=== PATIENT | female | born 2000 | race Caucasian/White ===

== ENCOUNTER 2022-04-21 10:25 | Inpatient (IN) | payer MEDICAID, SELFPAY ==
[2022-04-21] VITALS (11 sets, daily range): BP systolic 93–133; BP diastolic 38–85; PULSE 78–126; RESP 16–99; TEMP 36.6–36.9; O2SAT 96–100
--- NOTE | 2022-04-21 10:24 | ED.GENADUL_ITS ---
Discharge Plan Disposition Patient Disposition: [facility] INPATIENT Condition: Stable Discharge Details Chief Complaint: GenMedical Clinical Impression: Normal vaginal delivery ED Provider: Kiel Allred Medical Decision Making 21 yo female who denies chronic medical problems comes in with ems after she deliver a female baby at home. She did not know she was and her periods are always abnormal. She went to the bathroom and started to have abdominal pain and then delivered a baby in the toilet at home. She arrives stable other than mild sinus tachycardia. She has no complaints, denies abdominal pain and also delivered the placenta. OBGYN Dr. Aquino arrived shortly after and is assuming her obgyn care, pitocin ordered for some post delivery uterine bleeding. Differential Diagnosis Differential Diagnosis: vaginal delivery HPI General Mode of arrival: EMS . Date/Time Provider Initiated Documentation: 04/21/22 10:36 . Limitations to Documentation: no limitations . Information obtained by: patient . History of Present Illness 21 year old F presents to the emergency department with the chief complaint of delivered baby at home, Patient started experiencing this hour(s) (1) and it has been now resolved. Patient notes no other symptoms.. Related Data Allergies Allergy/AdvReac Type Severity Reaction Status Date / Time shellfish derived AdvReac Unverified 04/21/22 10:40 Review of Systems All systems reviewed & are unremarkable except as noted in HPI and below Constitutional Constitutional: Denies chills, Denies fever(s) and Denies weakness Cardiovascular Cardiovascular: Denies chest pain and Denies dyspnea Respiratory Respiratory: Denies cough and Denies dyspnea Gastrointestinal Gastrointestinal: Denies vomiting Genitourinary Genitourinary: Denies dysuria Musculoskeletal Musculoskeletal: Denies joint swelling Integumentary/Breasts Skin/Breast: Denies rash Neurologic Neurologic: Denies weakness [facility] All Active Problems (Updated 04/21/22 @ 10:41 by Kiel Allred MD) Normal vaginal delivery (Acute) Social History Smoking/Tobacco Use Status: Never Smoking risk assessment performed?: Yes Alcohol Intake: never Drug use: Never Substance use type: does not use Do you feel safe at home: Yes Do you feel safe in your relationship?: Yes Exam Const General: no acute distress Orientation: alert HENMT Head: normal to inspection Ears: external ears normal General nose exam: external nose normal Mouth: moist mucous membranes Eyes General: appearance normal, both eyes and all related structures Neck Neck: normal visual inspection Resp Effort & Inspection: normal respiratory effort and able to speak in complete sentences Cardio Rate: tachycardic Skin General skin exam: no rashes or lesions noted Neuro General: patient alert and patient oriented x3 Extrem General: normal to inspection Psych Mental Status: mental status grossly normal
--- NOTE | 2022-04-21 11:40 | HPE_ITS ---
Date of service: 04/21/22 Time of Service: 10:40 Assessment and Plan Assessment and plan (1) Encounter for care after unplanned out of hospital delivery: Status: Acute Assessment and plan: We will obtain labs. Assessed with breast-feeding. Offer social support services. We will discuss contraception with the patient during her course (2) Normal vaginal delivery: Status: Acute Assessment and plan: uncomplicated. will observe pp. OB-HPI Labor/Delivery History of Present Illness Reason for Visit: Out Of Hospital Chief Complaint: Other (out of hospital delivery). History of Present Narrative: Patient is a 21-year-old G1 now P1 female with an unknown known LMP who was transported to the [facility] emergency department after a spontaneous vaginal delivery at home this morning approximate 9:00. Patient reports that she did not know she was began having contractions proximal after midnight and went on to deliver a viable female infant over a right labial superficial laceration. Ambulance crew was called and assisted with delivery of an intact placenta and the patient was transported to [facility]. She received 10 units of IM oxytocin in route to the hospital. Upon arrival in the emergency department her daughter was breast-feeding with an excellent latch. Patient's uterus was firm 1 fingerbreadth below the umbilicus with light bleeding noted from a superficial right labial laceration. Review of Systems All systems reviewed & are unremarkable except as noted in HPI and below Constitutional Comments: Patient reports that she has a history of irregular menses. She was not actively contraceptive at the time of but did not realize she was until she went to labor. Genitourinary Genitourinary: Reports abnormal menses (Longstanding history of skipping periods sometimes 3 to 4 months w/o menses) and Reports amenorrhea Musculoskeletal Musculoskeletal: Reports system reviewed and no additional complaints, except as documented Integumentary/Breasts Skin/Breast: Reports system reviewed and no additional complaints, except as documented Psychiatric Comments: Patient relocated to [place] with her boyfriend the father the baby several months ago. Her family lives in [facility]. Patient denies any illicit drug use, tobacco use. She reports that her relationship with her boyfriend is good. Currently residing with her boyfriend grandparents. [facility] All Active Problems (Updated 04/21/22 @ 12:02 by Patria Nash MD) Encounter for care after unplanned out of hospital delivery (Acute) Normal vaginal delivery (Acute) 04/21/2022. Approximately 37 weeks. Out of hospital attended by father of baby. No complications. Patient was unaware that she was Surgical History (Updated 04/21/22 @ 11:57 by Patria Nash MD) History of tonsillectomy and adenoidectomy Social History (Updated 04/21/22 @ 11:59 by Patria Nash MD) Smoking/Tobacco Use Status: Never Smoking risk assessment performed?: Yes Alcohol Intake: never Drug use: Never Substance use type: does not use Household members: significant other and other Details: Moved from [place] with her boyfriend Daniel. Housing: other Details: Lives with just his grandparents Number of Children: 1 Sexually active: Yes Do you feel safe at home: Yes Do you feel safe in your relationship?: Yes Female Reproductive History Menstrual control method: none History History 1 Para 1 Hx # Term Pregnancies Multiple births Hx # Pregnancies Ectopic pregnancies AB induced Hx Number of Living Children 1 AB spontaneous Past Pregnancies Del. Date GA/Weeks # Outcome Route Wgt Sex Labor Lgth Anesthes ia Location Prov Complic Unknown 37 No Successful vaginal Female 8hrs Deli skip out of hospital at home Delivery Date: Last Updated by: Patria Nash MD at home. Patient was unaware she was . Viable female infant who will be named Meds Allergies and Home Medications Allergies Allergy/AdvReac Type Severity Reaction Status Date / Time shellfish derived AdvReac Unverified 04/21/22 10:40 Home Medications Medication Instructions Recorded Confirmed Type loratadine 10 mg tablet (Claritin) 10 mg PO DAILY 04/21/22 04/21/22 History Exam Physical Exam Vital signs: Temp Pulse Resp BP Pulse Ox 98.1 F 126 H 16 118/78 97 04/21/22 10:30 04/21/22 10:30 04/21/22 10:30 04/21/22 10:30 04/21/22 10:30 Vital Signs Reviewed: Yes Constitutional Constitutional: no acute distress Detailed Labor and Delivery Exam Moctezuma Score: Cervical Points Exam 0 1 2 3 Dilation Closed 1-2cm 3-4 cm 5-6cm Effacement 0-30% 40-50% 60-70% 80% Consistency Firm Medium Soft Station -3 -2 -1,0 +1,+2 Position Posterior Mid Anterior Neck Exam Neck Exam: Normal Chest/Brest/Axilla Exam Chest Exam: Normal Breast Exam Breast Exam: Normal Respiratory Exam Respiratory Exam: Normal Cardiovascular Exam Cardiovascular Exam: Normal Abdominal Exam Abdominal Exam: Normal (Fundus firm at 1 fingerbreadth below umbilicus) Rectal Exam Rectal Exam: Normal (Visual inspection normal) Detailed Exam Patient deferred: external exam External: Present normal urethra appearance Genitals image: 1. Superficial labial laceration. The edges were infiltrated with 1% lidocaine and reapproximated with a running suture of 3-0 Vicryl. No other lacerations appreciated. Perineum Description: Normal Extremities Exam Extremities Exam: Normal (Superficial excoriations on both lower extremities and forearms. Patient states that they are mosquito bites) Back/Spine/Pelvis Exam Back Exam: Normal Skin Exam Skin Exam: Normal (As above.) Neurological Exam Neurological Exam: Normal Psychiatric Exam Psychiatric Exam: Normal Results Results Group Beta Strep: N/A Blood Type: O+ Lab Results: serology labs pending Abnormal Lab Findings: I examined pt's ED labs. Troponin elevated. Lab was ordered in error and is artificially elevated secondary to pt's labor and . Will cancel serial labs. Risk Assessment Risks Reviewed Risks Reviewed Upon Admission: Yes
[2022-04-21 12:52] LABS: Absolute Basophil Count 0.02 10^3/uL (0.0-0.2); Absolute Lymphocyte Count 0.89 10^3/uL (1.2-3.4); Absolute Neutrophil Count 15.78 10^3/uL (1.2-6.7); Basophils % 0.1; HCT 29.3 % (36.0-46.0); HGB 9.8 g/dL (11.2-15.7); Immature Grans % 0.6; Lymphocytes % 4.9; MCHC 33.4 % (32.0-36.0); MCV 93 fL (80-95); MPV 11.5 fL (8.0-11.0); Monocytes % 7.2; Neutrophils % 87.2; Platelet Count 137 10^3/uL (130-400); RBC 3.16 10^6/uL (3.93-5.22); RDW 13.2 % (11.7-14.6); RDW-SD 44.8 fL
[2022-04-21] MEDS: Lidocaine 1% Pres-Free 30 ML VIAL (13:19)
[2022-04-21 13:30] LABS: ALT 44 U/L (14-59); AST 47 U/L (15-37); Albumin 2.2 g/dL (3.4-5.0); Alkaline Phosphatase 210 U/L (46-116); Anion Gap 10.5 mmol/L (3-11); BUN 18 mg/dL (7-18); Bilirubin, Total 0.3 mg/dL (0.2-1.0); CO2 22.5 mmol/L (21.0-32.0); Chloride 106 mmol/L (98-107); Glucose 119 mg/dL (74-106); Magnesium 1.6 mg/dL (1.8-2.4); Sodium 139 mmol/L (136-145); Total Protein 5.5 g/dL (6.4-8.2)
[2022-04-21 13:32] LABS: Troponin I 325 ng/L (<or=60)
[2022-04-21] MEDS: Normal Saline Flush 10 ML SYR IVP (14:54)
[2022-04-21 17:21] LABS: *AMPHETAMINES SCREEN URINE Negative (Negative); *BARBITURATES SCREEN URINE Negative (Negative); *BENZODIAZEPINES SCREEN URINE Negative (Negative); Cannabinoids THC Negative (Negative); Cocaine Screen,Urine Negative (Negative); METHADONE URINE SCREEN Negative (Negative); OPIATES URINE SCREEN Negative (Negative)
[2022-04-21 17:22] LABS: Tricyclic Antidepressants Negative (Negative)
[2022-04-21] MEDS: Acetaminophen 325 MG TAB 650 MG PO (20:23)
[2022-04-21 23:43] LABS: Source Nasal/Nares
[2022-04-22 00:33] LABS: COVID-19 PCR Negative (Negative)
[2022-04-22 07:45] VITALS: BP 118/68; PULSE 71; RESP 16; TEMP 36.6; O2SAT 98
[2022-04-22 08:00] LABS: HIV-1/2 Ag & Ab Screen Negative (Negative)
[2022-04-22 08:03] LABS: Hepatitis B Surface Ag Negative (Negative)
[2022-04-22 08:32] LABS: Hepatitis C Ab w Rflx HCV PCR Negative (Negative)
[2022-04-22 12:31] LABS: Rubella IgG Ab (UVM) Positive (See Note)
[2022-04-22 12:36] LABS: Syphilis Serology (RPR) Negative (Negative)
[2022-04-22 16:00] VITALS: BP 138/88; PULSE 83; RESP 16; TEMP 36.8; O2SAT 98
--- NOTE | 2022-04-22 18:33 | W.PM.OBPNV1 ---
Date of service: 04/22/22 Time of Service: 18:33 Assessment and Plan Assessment and plan (1) Encounter for care after unplanned out of hospital delivery: Status: Acute Assessment and plan: Routine post care. D/c likely tomorrow am. Subjective Subjective Patient's Mood: Good baby status: Doing well feeding status: Exclusively breast feeding Narrative: Pt feels well. Minimal bleeding. No n/v. No significant pain. Exam Physical Exam Vital signs: Temp Pulse Resp BP Pulse Ox 97.9 F 71 16 118/68 98 04/22/22 07:45 04/22/22 07:45 04/22/22 07:45 04/22/22 07:45 04/22/22 07:45 Vital Signs Reviewed: Yes HEENT Exam HEENT Exam: Normal Fundal Exam Fundus: Below Umbilicus and Firm Extremities Exam Extremity Exam: Normal; negative Calf Tenderness or Edema Results Hemoglobin/Hematocrit: Hgb 9.8 g/dL (11.2-15.7) L 04/21/22 11:25 Hct 29.3 % (36.0-46.0) L 04/21/22 11:25 Abnormal Lab Findings: Abnormal Labs 04/21/22 04/21/22 11:25 11:25 WBC 18.10 H RBC 3.16 L Hgb 9.8 L Hct 29.3 L MPV 11.5 H Absolute Neutrophils 15.78 H Absolute Lymphocytes 0.89 L Absolute Monocytes 1.30 H Glucose 119 H Magnesium 1.6 L AST 47 H Alkaline Phosphatase 210 H Troponin I 325 H* Total Protein 5.5 L Albumin 2.2 L
[2022-04-22 19:20] VITALS: BP 126/74; PULSE 94; RESP 16; TEMP 36.9; O2SAT 98
[2022-04-23 08:41] VITALS: BP 121/78; PULSE 101; RESP 18; TEMP 36.8
--- NOTE | 2022-04-23 09:10 | W.PM.OBDISCH ---
Date of service: 04/23/22 Time of Service: 09:11 DS: Diagnosis Discharge Diagnosis (1) Encounter for care after unplanned out of hospital delivery: Status: Acute Asessment and Plan: No care. Discharge Plan Disposition Patient Disposition: HOME Condition: Stable Discharge Details Reason For Visit: Out Of Hospital Admit Date/Time: 04/21/22 10:43 Admit Provider: Patria Nash Attending Provider: Patria Nash [facility] Course: Patient was admitted to the center on 04/21/2022 after she had an unattended spontaneous vaginal delivery at home. Patient and her were transported via ambulance to [facility] where she was admitted to the center for 48 hours of observation. She was discharged to home with successfully breast-feeding and bonding well with her infant. We discussed a levonorgestrel IUD for contraception. She will make an appointment for 2 weeks to follow-up with Dr. [facility]. Her female infant will be named Machelle. Home Meds and New Rx's Prescriptions: No Action loratadine [Claritin] 10 mg Tablet 10 mg PO DAILY Discharge Instructions Stand Alone Forms: BC Post Vaginal Deliver, BC Instructions Activity:: No sex until 6 weeks post Equipment/Supplies:: No Equipment Needed Diet:: As Tolerated Discharge Data Discharge Comment: make an appointment to see Dr. Nash in 2weeks OB:DS Summary Summary Vaginal Delivery Method: Spontaneaous Episiotomy Description: None Laceration Description: Perineal Laceration Extension: First Degree complications OB DS: none Contraception Discussed Contraception Discussed: Yes (Patient given information regarding levonorgestrel IUD), Gender-Baby A: Female weight: 6 lb 5.413 oz Disposition of Baby A: Home Gender-Baby B: Female Status at Discharge Functional status at discharge: independent ambulation Overall status at discharge: patient is progressing back to baseline Mental Status: mental status grossly normal Speech and Movement: speech and movement normal Mood: congruent mood Affect: normal affect Time Spent with Patient providing and/or coordinating discharge services: Less than 30 minutes Exam Physical Exam Vital signs: Temp Pulse Resp BP Pulse Ox 98.2 F 101 H 18 121/78 98 04/23/22 08:41 04/23/22 08:41 04/23/22 08:41 04/23/22 08:41 04/22/22 19:20 Constitutional Constitutional: no acute distress Neck Exam Neck Exam: Normal Respiratory Exam Respiratory Exam: Normal Cardiovascular Exam Cardiovascular Exam: Normal Abdominal Exam Comments: non-tender Fundal Exam Fundus: Below Umbilicus Rectal Exam Rectal Exam: Not Done Extremities Exam Extremity Exam: Normal, Normal Capillary Refill and Warm to Touch Back/Spine/Pelvis Exam Back Exam: Not Done Skin Exam Skin Exam: Not Done Neurological Exam Neurological Exam: Normal Psychiatric Exam Psychiatric Exam: Normal Additional findings Additional findings: Patient is adjusting well to role. Breast-feeding successfully. Looking forward to discharge to home with infant. [facility] All Active Problems (Updated 04/21/22 @ 12:02 by Patria Nash MD) Encounter for care after unplanned out of hospital delivery (Acute) Normal vaginal delivery (Acute) 04/21/2022. Approximately 37 weeks. Out of hospital attended by father of baby. No complications. Patient was unaware that she was Surgical History (Updated 04/21/22 @ 11:57 by Patria Nash MD) History of tonsillectomy and adenoidectomy Social History (Updated 04/21/22 @ 11:59 by Patria Nash MD) Smoking/Tobacco Use Status: Never Smoking risk assessment performed?: Yes Alcohol Intake: never Drug use: Never Substance use type: does not use Household members: significant other and other Details: Moved from [place] with her boyfriend Daniel. Housing: other Details: Lives with just his grandparents Number of Children: 1 Sexually active: Yes Do you feel safe at home: Yes Do you feel safe in your relationship?: Yes Female Reproductive History Menstrual control method: none History History 1 Para 1 Hx # Term Pregnancies Multiple births Hx # Pregnancies Ectopic pregnancies AB induced Hx Number of Living Children 1 AB spontaneous Past Pregnancies Del. Date GA/Weeks # Outcome Route Wgt Sex Labor Lgth Anesthesia Location Prov Complic Unknown 37 No Successful vaginal Female 8hrs Delivered out of hospital at home Delivery Date: Last Updated by: Patria Nash MD at home. Patient was unaware she was . Viable female who will be named Machelle. DS: Data Vitals/I&O Vitals and I&O: Vital Signs Temperature 98.2 F 04/23/22 08:41 Temperature Source Temporal Artery Scan 04/21/22 10:30 Pulse 101 H 04/23/22 08:41 Pulse Rhythm Regular 04/23/22 08:41 Respiratory Rate 18 04/23/22 08:41 Respiratory Effort 04/21/22 11:54 Respiratory Depth Normal 04/21/22 11:54 Respiratory Pattern Normal 04/21/22 11:54 Blood Pressure 121/78 04/23/22 08:41 Blood Pressure Mean 92 04/23/22 08:41 Blood Pressure Position Sitting 04/21/22 10:30 Pulse Oximetry 98 04/22/22 19:20 Oxygen Delivery Method Room Air 04/21/22 10:30 Oxygen Flow Rate 0 04/21/22 10:30 Pain Level 2 04/21/22 16:00 Comment 04/21/22 11:00 Intake & Output 04/22/22 04/22/22 04/23/22 11:59 23:59 11:59 Output Total 800 / 800 Balance -800 / -800 Output: Urine 800 / 800 Data Completed and Pending Labs on day of discharge: Labs from last 24 hours 04/21/22 04/21/22 04/21/22 11:25 11:25 11:25 Syphilis Serology Hep Bs Antigen Negative Hepatitis C Antibody Negative HIV 1&2 Ag/Ab, 4th Gen Negative Rubella IgG Antibody 04/21/22 11:25 Syphilis Serology Negative Hep Bs Antigen Hepatitis C Antibody HIV 1&2 Ag/Ab, 4th Gen Rubella IgG Antibody Positive
== END 2022-04-23 14:30 | disposition home or self-care (01) | DRG 776 ==
LOC: ER 10:46 → OBS 11:07
PROVIDERS: Admitting Provider Obstetrics & Gynecology Gynecology; Emergency Provider Emergency Medicine; Visit Provider Obstetrics & Gynecology Gynecology
DX: O70.0 First degree perineal laceration during delivery (principal); Z39.2 Encounter for routine postpartum follow-up
CPT/HCPCS: 36415; 80053; 80307; 86803; 86850; 86900; 86901; 87340; 87389; 87635; 96365; 96372; 99285; 83735; 84484; 85025; 86592; 86762; J3490